=== PATIENT | male | born 1995 | race Caucasian/White ===

== ENCOUNTER 2018-05-08 22:49 | Emergency (ER) | payer SELFPAY ==
[~2018-05-08] VITALS: Ht 157.5 cm; Wt 68.9 kg
[2018-05-08 22:54] VITALS: Ht 157.5 cm; Wt 68.9 kg
[2018-05-08 23:41] LABS: CHLORIDE SERUM 107 mmol/L (98-107); CREATININE SERUM 1.2 mg/dL (0.7-1.3); GFR1 > 60 mL/min; GLUCOSE SERUM 116 mg/dL (74-106); POTASSIUM SERUM 3.6 mmol/L (3.5-5.1); SODIUM SERUM 143 mmol/L (136-145)
[2018-05-08 23:42] LABS: AMPHETAMINE QUAL UR NONE DETECTED (See below)
[2018-05-08 23:42] LABS: BASOPHIL % 0.4 % (0-2); PLATELET COUNT 167 x10^3mcL (130-400); RED CELL DISTRIBUTION WIDTH 13.9 % (11.5-14.5)
[2018-05-08 23:45] LABS: ALBUMIN 4.4 g/dL (3.4-5.0); ALKALINE PHOSPHATASE 134 U/L (46-116); ALT/SGPT 66 U/L (16-63); AST/SGOT 29 U/L (15-37); BILIRUBIN TOTAL 0.49 mg/dL (0.20-1.00); MAGNESIUM 2.1 mg/dL (1.8-2.4); TOTAL PROTEIN, SERUM 7.5 g/dL (6.4-8.2)
[2018-05-09 00:24] LABS: FREE T4 0.89 ng/dL (0.76-1.46); FREE THYROXINE INDEX 2.4 ug/dL (1.4-4.5); T4(THYROXINE) 6.9 ug/dL (4.7-13.3)
[2018-05-09 01:26] VITALS: BP 122/82
[2018-05-09 01:59] LABS: T3 TOTAL 1.21 ng/mL
== END 2018-05-09 01:26 | disposition home or self-care (01) ==
LOC: ED 22:49
PROVIDERS: Emergency Medicine
DX: S91.205A Unspecified open wound of left lesser toe(s) with damage to nail, initial encounter (principal); G47.00 Insomnia, unspecified; X58.XXXA Exposure to other specified factors, initial encounter; Y93.89 Activity, other specified; Y92.89 Other specified places as the place of occurrence of the external cause; Y99.8 Other external cause status
CPT/HCPCS: 83880; 84439; 90715; J7030; Q0092